=== PATIENT | female | born 1940 | race African-American/Black ===

== ENCOUNTER 2017-11-24 06:28 | Emergency (ER) | payer OTHER ==
[~2017-11-24] VITALS: Ht 157.5 cm; Wt 77.1 kg
[~2017-11-24 06:28] MED LIST: DIOVAN160 M1; LEVOTHYROXINE88 MCG; PROTONIX20 MG
== END 2017-11-24 16:52 | disposition home or self-care (01) ==
LOC: ER 06:28 → CPU-OBS 07:14 → ER 16:52
DX: R07.89 Other chest pain (principal); I73.89 Other specified peripheral vascular diseases; N39.0 Urinary tract infection, site not specified